=== PATIENT | female | born 2000 | race Caucasian/White ===

== ENCOUNTER 2024-09-08 14:05 | Emergency (ER) | payer SELFPAY ==
--- OUTSIDE RECORDS SUMMARY | 2024-09-08 14:07 | XMS REPORT | Continuity of Care Document ---
Author Name Unknown Address [address] [facility] [place]. [address] th[address] Address [address] [facility] [place]. [address] [place] [address] Care Team Providers Care Director Of Accounts Payable Name Role Phone [email or web address] Attending Clinician Unavailab le [email or web address] Admitting Clinician Unavailab le Payers Payer Name Policy Type Policy Number Effective Date Expirati on Date Source [facility] (MEDICAID HMO) [id number] 2016 00:00:00 Encounters Start Date/Time End Date/Time Encounter Type Admission Type Attending Clinicians Care Facility Care Department Encounter ID Source 2023-03-29 00:00:00 2023-03-29 00:00:00 Outpatient GC_PPMD_MAT THEWS_H PRIV PRIV [id number] [facility] 2023-03-29 00:00:00 2023-03-29 00:00:00 Outpatient [email or web address] THEWS_H PRIV PRIV [id number] [facility] 2023-03-23 00:00:00 2023-03-23 00:00:00 Outpatient [email or web address]_MAT THEWS_H PRIV PRIV [id number] [facility]
[2024-09-08] MEDS ORDERED: NA CHLORIDE 0.9% 1,000 ML ONE ×2 (14:50→15:45)
[2024-09-08 15:10] LABS: Specific Gravity > 1.030 (1.005-1.030); Urine Bilirubin NEGATIVE (Negative); Urine Blood Negative (Negative); Urine Clarity Clear (Clear); Urine Color Colorless (Yellow); Urine Glucose 4+ (Over) (Negative); Urine Ketones NEGATIVE (Negative); Urine Microscopic Reflex YN NO UMIC; Urine Nitrite NEGATIVE (Negative); Urine Protein NEGATIVE (Negative); Urine Urobilinogen Normal (Normal)
[2024-09-08 15:11] LABS: Absolute Basophils 0.1 K/uL (0-0.5); Absolute Eosinophils 0.1 K/uL (0-0.5); Absolute Lymphocytes (CBC) 1.8 K/uL (0.7-4.9); Absolute Monocytes 0.5 K/uL (0.1-1.3); Absolute Neutrophil 3.7 K/uL (1.8-8.0); Basophils % 0.8 % (0-1.3); Eosinophils % 2.3 % (0-4.4); Hematocrit 43.2 % (36.0-45.0); Hemoglobin 15.1 g/dL (12.0-15.0); Lymphocytes % 29.4 % (15.3-44.8); MCH 30.6 pg (27.0-35.0); MCHC 34.9 g/dL (32.0-36.0); MCV 87.8 fL (80-100); MPV 8.8 fL (7.6-11.3); Monocytes % 8.4 % (3.3-12.3); Neutrophils % 59.1 % (41.7-73.7); Platelets 336 thou/uL (152-406); RBC Red Blood Cell Count 4.92 M/uL (3.86-4.86); Red Cell Distribution Width 12.7 % (12.1-15.2)
[2024-09-08 15:23] LABS: SARS-CoV-2 Antigen CONTROL BLUE LINE VIS/BG OK; SARS-CoV-2 Antigen Rapid Res Negative (Negative)
[2024-09-08 15:29] LABS: ALT/SGPT 28 U/L (13-56); Albumin 3.4 g/dL (3.4-5.0); Albumin/Globulin Ratio 0.8 (1.1-1.8); Alkaline Phosphatase 80 U/L (45-117); Anion Gap 9.4 mEq/L (5.0-15.0); BUN Blood Urea Nitrogen 10 mg/dL (7-18); Bicarbonate 25 mEq/L (21-32); Bilirubin Total 0.7 mg/dL (0.2-1.0); Globulin 4.1 g/dL (2.3-3.5); Glomerular Filtration Rate 110 ml/min (=/>90); Glucose Level 385 mg/dL (74-106); Potassium 4.4 mEq/L (3.5-5.1); Protein, Total 7.5 g/dL (6.4-8.2); Sodium Level 134 mEq/L (136-145)
[2024-09-08 15:30] LABS: AST/SGOT < 10 U/L (15-37)
--- NOTE | 2024-09-08 15:48 | RAD REPORT ---
Procedure: Chest Single View HISTORY: Cough COMPARISON: none FINDINGS: The lungs appear clear of acute infiltrate. No significant pleural effusion noted. The heart is normal size. IMPRESSION: No acute abnormality is displayed.
[2024-09-08] MEDS ORDERED: INSULIN REGULAR (HUMAN) 100 UNIT/ML ONE (15:58)
--- NOTE | 2024-09-08 17:24 | ER ---
Nurse's Notes [facility] Name: Lucretia Juarez Age: 24 yrs Sex: Female : 2000 Arrival Date: 09/08/2024 Time: 14:05 Bed 4 Private MD: Diagnosis: Hyperglycemia, unspecified Presentation: 09/08 14:18 Chief complaint: Patient states: she checked her sugar because she wasn't feeling well ap3 and it was over 400. patient states her fasting BGL is normally around 250, but she wasn't feeling well and wanted to check her sugar. patient complains of cough for "a few days" and nausea that started this morning. Coronavirus screen: At this time, the client does not indicate any symptoms associated with coronavirus-19. Ebola Screen: No symptoms or risks identified at this time. Initial Sepsis Screen: Does the patient meet any 2 criteria? HR > 90 bpm. Does the patient have a suspected source of infection? No. Patient's initial sepsis screen is negative. Risk Assessment: Do you want to hurt yourself or someone else? Patient reports no desire to harm self or others. Onset of symptoms was September 07, 2024. 14:18 Method Of Arrival: Ambulatory ap3 14:18 Acuity: TEDDY 2 ap3 Triage Assessment: 14:21 General: Appears in no apparent distress. Behavior is calm, cooperative, appropriate ap3 for age. Pain: Denies pain. Neuro: Level of Consciousness is awake, alert, obeys commands, Oriented to person, place, time, situation. Cardiovascular: Patient's skin is warm and dry. Respiratory: Reports cough that is Airway is patent Respiratory effort is even, unlabored, Respiratory pattern is regular, symmetrical. GI: Reports nausea, since this morning. 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 - Infectious Disease History:: Denies. - Social history:: Smoking status: Patient reports the use of cigarette tobacco products, Reported history of juuling and/or vaping. Screenin:22 [facility] ED Fall Risk Assessment (Adult) History of falling in the last 3 months, ap3 including since admission No falls in past 3 months (0 pts) Confusion or Disorientation No (0 pts) Intoxicated or Sedated No (0 pts) Impaired Gait No (0 pts) Mobility Assist Device Used No (0 pt) Altered Elimination No (0 pt) Score/Fall Risk Level 0 - 2 = Low Risk Oriented to surroundings, Maintained a safe environment, Educated pt \\T\\ family on fall prevention, incl call for assistance when getting out of bed, Assessed \\T\\ reinforced patient's understanding of fall precautions, Hourly rounding (assess needs \\T\\ fall precautionary measures) done, Used ambulatory aids as needed (educated on \\T\\ assisted with), Used gait belt as appropriate. Abuse screen: Denies threats or abuse. Nutritional screening: No deficits noted. Tuberculosis screening: No symptoms or risk factors identified. Assessment: 14:55 Reassessment: Patient appears in no apparent distress at this time. Patient and/or db family updated on plan of care and expected duration. Pain level reassessed. Patient is alert, oriented x 3, equal unlabored respirations, skin warm/dry/pink. General: Appears in no apparent distress. comfortable, Behavior is calm, cooperative. Neuro: Level of Consciousness is awake, alert, obeys commands, Oriented to person, place, time, situation. Respiratory: Airway is patent Respiratory effort is even, unlabored, Respiratory pattern is regular, symmetrical. 16:30 Reassessment: Patient appears in no apparent distress at this time. Patient and/or db family updated on plan of care and expected duration. Pain level reassessed. Patient is alert, oriented x 3, equal unlabored respirations, skin warm/dry/pink. 17:38 Reassessment: Patient appears in no apparent distress at this time. Patient and/or db family updated on plan of care and expected duration. Pain level reassessed. Patient is alert, oriented x 3, equal unlabored respirations, skin warm/dry/pink. General: Appears in no apparent distress. comfortable, Behavior is calm, cooperative. Vital Signs: 14:18 Pulse 94; Resp 18; Temp 97.3(TE); Pulse Ox 99% ; Weight 79.38 kg; Height 5 ft. 2 in. ; ap3 14:18 BP 150 / 112; ap3 16:57 BP 134 / 89; Pulse 93; Resp 18; Pulse Ox 100% ; ko1 17:15 BP 130 / 90; Pulse 78; Resp 16; Pulse Ox 99% on R/A; db 14:18 Body Mass Index 32.01 (79.38 kg, 157.48 cm) ap3 ED Course: 14:07 Patient arrived in ED. mr 14:07 Payton Crenshaw, NO[facility]I [facility]. kb 14:07 Lance Peralta MD is Attending Physician. kb 14:20 Triage completed. ap3 14:23 Arm band placed on right wrist. ap3 14:55 Patient has correct armband on for positive identification. Placed in gown. Bed in low db position. Call light in reach. Side rails up X 1. Client placed on continuous cardiac and pulse oximetry monitoring. NIBP monitoring applied. school bus monitor on. Pulse ox on. NIBP on. Pillow given. 14:55 Initial lab(s) drawn, by me, sent to lab. EKG done, reviewed by Payton FRANKLIN. db Inserted saline lock: 20 gauge in right antecubital area, using aseptic technique. Blood collected. Flushed with 10 mL NS. 15:16 Dania Overton, RN is Primary Nurse. db 15:36 Chest Single View XRAY In Process Unspecified. EDMS 16:57 Provided Education on: labs. ko1 16:57 No provider procedures requiring assistance completed. ko1 17:38 IV discontinued, intact, bleeding controlled, No redness/swelling at site. db Administered Medications: 14:55 Drug: NS 0.9% IV 1000 ml IV at 1000 ml once; to be given as a bolus over 60 minutes db Route: IV; Rate: 1000 ml; Site: right antecubital; 16:02 Follow up: Response: No adverse reaction; IV Status: Completed infusion; IV Intake: db 1000ml 16:02 Drug: Insulin Regular Human IVP 5 units IVP once {Co-Signature: ashlyn (Natalie Lanier RN).} Route: IVP; Site: right antecubital; 17:38 Follow up: Response: No adverse reaction db Medication: 14:55 VIS not applicable for this client. db Point of Care Testing: Blood Glucose: 17:17 Blood Glucose: 171 mg/dL; db Ranges: Intake: 16:02 IV: 1000ml; Total: 1000ml. db Outcome: 17:24 Discharge ordered by . alexandria 17:38 Discharged to home ambulatory, db 17:38 Condition: stable 17:38 Discharge instructions given to patient, Instructed on discharge instructions, follow up and referral plans. 17:39 Patient left the ED. db Signatures: Dispatcher [employer] EDWV Payton Crenshaw, LAINE-C STRADDLE BUGGY OPERATOR-Edwin MathewAbbie, [facility] Reg mr Melinda Aguirre, RN RN javy3 Natalie Lanier, RN RN ko1 Dania Overton RN RN db Natalie Lanier RN ko1 Corrections: (The following items were deleted from the chart) 14:22 14:18 Chief complaint: Patient states: she checked her sugar because she wasn't feeling ap3 well and it was over 400. patient states her fasting BGL is normally around 250, but she wasn't feeling well and wanted to check her sugar. ap3
--- NOTE | 2024-09-08 17:24 | EDPHYS ---
Physician Documentation [facility] Name: Lucretia Juarez Age: 24 yrs Sex: Female : 2000 Arrival Date: 09/08/2024 Time: 14:05 Bed 4 Private MD: ED Physician Lance Peralta HPI: 09/08 14:51 This 24 yrs old Female presents to ER via Ambulatory with complaints of High Blood kb Sugar. 14:51 Pt is a 24 year old female who presents for high blood sugar. States it normally runs kb around 250, but she checked it today and it was 400. Reports nausea and malaise over the last few days. Denies vomiting, fever. States she has had a slight cough. 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 - Infectious Disease History:: Denies. - Social history:: Smoking status: Patient reports the use of cigarette tobacco products, Reported history of juuling and/or vaping. ROS: 14:51 Constitutional: As per HPI kb Exam: 14:51 Constitutional: This is a well developed, well nourished patient who is awake, alert, kb and in no acute distress. Head/Face: Normocephalic, atraumatic. ENT: Moist Mucous membranes Cardiovascular: Regular rate Respiratory: Respirations even and unlabored. No increased work of breathing. Talking in full sentences Abdomen/GI: Soft, non-tender. No distention Skin: Warm, dry with normal turgor. Normal color. MS/ Extremity: Pulses equal, no cyanosis. Neurovascular intact. Full, normal range of motion. Neuro: Awake and alert, GCS 15, oriented to person, place, time, and situation. 15:20 ECG was reviewed by the Attending Physician. kb Vital Signs: 14:18 Pulse 94; Resp 18; Temp 97.3(TE); Pulse Ox 99% ; Weight 79.38 kg; Height 5 ft. 2 in. ; ap3 14:18 BP 150 / 112; ap3 16:57 BP 134 / 89; Pulse 93; Resp 18; Pulse Ox 100% ; ko1 17:15 BP 130 / 90; Pulse 78; Resp 16; Pulse Ox 99% on R/A; db 14:18 Body Mass Index 32.01 (79.38 kg, 157.48 cm) ap3 MDM: 14:07 Medical Screening Exam initiated kb 17:23 Data reviewed: vital signs, nurses notes. kb 17:24 Differential diagnosis: DKA, hyperglycemia. Counseling: I had a detailed discussion kb with the patient and/or guardian regarding the historical points, exam findings, and any diagnostic results supporting the discharge/admit diagnosis, lab results, radiology results, the need for outpatient follow up, a family practitioner, to return to the emergency department if symptoms worsen or persist or if there are any questions or concerns that arise at home. 17:24 Care significantly affected by the following Social Determinants of Health: Poor access kb to healthcare and/or lack of insurance. 09/08 14:21 Order name: CBC with Diff; Complete Time: 15:29 kb 09/08 14:21 Order name: CMP; Complete Time: 15:37 kb 09/08 14:21 Order name: Test, Urine; Complete Time: 15:17 kb 09/08 14:21 Order name: Urinalysis w/ reflexes; Complete Time: 15:17 kb 09/08 14:21 Order name: Flu; Complete Time: 15:29 kb 09/08 14:21 Order name: SARS-COV-2 Antigen Rapid; Complete Time: 15:29 kb 09/08 14:30 Order name: Glucose, Ancillary Testing; Complete Time: 14:30 EDMS 09/08 17:28 Order name: Glucose, Ancillary Testing; Complete Time: 17:30 EDMS 09/08 14:21 Order name: Chest Single View XRAY; Complete Time: 15:50 kb 09/08 14:21 Order name: IV Start; Complete Time: 14:55 kb 09/08 14:21 Order name: EKG - Nurse/Tech; Complete Time: 15:17 kb 09/08 16:45 Order name: Blood Glucose Level; Complete Time: 17:17 kb EC:20 Rate is 82 beats/min. Rhythm is regular. QRS [place] is Normal. MI interval is normal at kb 122 msec. QRS interval is normal at 92 msec. QT interval is normal at 427 msec. Administered Medications: 14:55 Drug: NS 0.9% IV 1000 ml IV at 1000 ml once; to be given as a bolus over 60 minutes db Route: IV; Rate: 1000 ml; Site: right antecubital; 16:02 Follow up: Response: No adverse reaction; IV Status: Completed infusion; IV Intake: db 1000ml 16:02 Drug: Insulin Regular Human IVP 5 units IVP once {Co-Signature: ko1 (Natalie Lanier RN).} Route: IVP; Site: right antecubital; 17:38 Follow up: Response: No adverse reaction db Point of Care Testing: Blood Glucose: 17:17 Blood Glucose: 171 mg/dL; db Ranges: Critical Glucose Levels:Adult <50 mg/dl or >400 mg/dl <40 mg/dl or >180 mg/dl Disposition: 09/09 07:02 Co-signature as Attending Physician, Lance Peralta MD I reviewed the patient's care rt provided by the Advanced Practice Provider and agree with the diagnosis and treatment plan. Disposition Summary: 09/08/24 17:24 Discharge Ordered Notes: Location: Home kb Condition: Stable kb Diagnosis - Hyperglycemia, unspecified kb Followup: kb - With: Emergency Department - When: As needed - Reason: Worsening of condition Followup: kb - With: Private Physician - When: 2 - 3 days - Reason: Recheck today's complaints, Continuance of care, Re-evaluation by your physician Discharge Instructions: - Discharge Summary Sheet kb - Hyperglycemia, [id number] kb Forms: - Medication Reconciliation Form kb - Antibiotic Education kb - Prescription Opioid Use kb - Patient Portal Instructions kb - Leadership Thank You Letter kb - Work release form ap3 Signatures: Dispatcher [employer] [facility] Payton Crenshaw FNP-C LAINE-Melinda Wagner RN RN ap3 Dania Overton RN RN db [place], Ryan, MD MD rt Natalie Lanier RN ko1 Corrections: (The following items were deleted from the chart) 09/08 14:21 14:21 CBC+H.LAB.BRZ ordered. EDAK EDMS 14:21 14:21 COMPREHENSIVE METABOLIC PANEL+C.LAB.BRZ ordered. EDAK EDMS 14:21 14:21 Test, Urine+UC.LAB.BRZ ordered. EDAK EDMS 14: 14:21 Urinalysis+U.LAB.BRZ ordered. EDMS EDMS 14: 14:21 Chest Single View+RAD.RAD.BRZ ordered. EDMS EDMS 14: 14:21 Influenza Screen (A \T\ B)+BA.LAB.BRZ ordered. EDMS EDMS 14: 14:21 SARS-COV-2 Antigen Rapid+I.LAB.BRZ ordered. EDMS EDMS
[2024-09-08 20:18] VITALS: TEMP 97.3
[2024-09-08 20:24] VITALS: BP 134/89; O2SAT 100
--- NOTE | 2024-09-13 12:46 | EKG ---
Test Date: 2024-09-08 Test Time: 15:02:04 Paunch Trimmer: JUANJOSE MEASUREMENT RESULTS: Intervals: Rate: 82 MD: 122 QRSD: 92 QT: 366 QTc: 427 Dania: P: 26 MD: 122 QRS: 49 T: 55 INTERPRETIVE STATEMENTS: Normal sinus rhythm with sinus arrhythmia Normal ECG No previous ECG available for comparison Electronically Signed On 09-13-24 12:37:26 PATENT LEGAL ASSISTANT by Dg Christensen
== END 2024-09-08 17:39 | disposition home or self-care (01) ==
LOC: ER 14:05
DX: E11.65 Type 2 diabetes mellitus with hyperglycemia (principal)
CPT/HCPCS: 36415; 71045; 80053; 81003; 81025; 82947; 85025; 87804; 87811; 93005; 96361; 96374; 99285; J7030

== ENCOUNTER 2024-12-23 14:33 | Emergency (ER) | payer SELFPAY ==
[2024-12-23] MEDS ORDERED: NA CHLORIDE 0.9% 1,000 ML ONE (15:30)
[2024-12-23] MEDS ORDERED: KETOROLAC 30 MG/ML INJ ONE (15:30)
[2024-12-23] MEDS ORDERED: ONDANSETRON 4 MG/2 ML VIAL ONE (15:30)
[2024-12-23] MEDS ORDERED: FAMOTIDINE 20 MG/2 ML VIAL IV ONE (15:30)
[2024-12-23 15:48] LABS: Specific Gravity 1.021 (1.005-1.030); Urine Bilirubin NEGATIVE (Negative); Urine Blood Negative (Negative); Urine Clarity Clear (Clear); Urine Color Light-Yellow (Yellow); Urine Glucose 4+ (Over) (Negative); Urine Ketones NEGATIVE (Negative); Urine Microscopic Reflex YN NO UMIC; Urine Nitrite NEGATIVE (Negative); Urine Protein NEGATIVE (Negative); Urine Urobilinogen Normal (Normal); Urine pH 5.5 (5.0-7.0)
[2024-12-23 15:52] LABS: Absolute Basophils 0.1 K/uL (0-0.5); Absolute Eosinophils 0.2 K/uL (0-0.5); Absolute Lymphocytes (CBC) 2.6 K/uL (0.7-4.9); Absolute Monocytes 0.5 K/uL (0.1-1.3); Absolute Neutrophil 4.7 K/uL (1.8-8.0); Basophils % 0.7 % (0-1.3); Eosinophils % 2.5 % (0-4.4); Hematocrit 45.4 % (36.0-45.0); Hemoglobin 15.6 g/dL (12.0-15.0); Lymphocytes % 31.8 % (15.3-44.8); MCH 29.6 pg (27.0-35.0); MCHC 34.3 g/dL (32.0-36.0); MCV 86.2 fL (80-100); MPV 8.9 fL (7.6-11.3); Monocytes % 6.5 % (3.3-12.3); Neutrophils % 58.5 % (41.7-73.7); Nucleated RBC Absolute Count 0.1 (0-0); Nucleated Red Blood Cells % 0.7 % (0-0); Platelets 276 thou/uL (152-406); RBC Red Blood Cell Count 5.26 M/uL (3.86-4.86); Red Cell Distribution Width 12.8 % (12.1-15.2)
--- NOTE | 2024-12-23 16:02 | RAD REPORT ---
EXAM: Abdominal exam Limited ultrasound CLINICAL HISTORY: Abdominal pain COMPARISON: None FINDINGS: A gallstone is not seen. Gallbladder wall not thickened. Biliary tree normal caliber IMPRESSION: No significant abnormalities displayed
[2024-12-23 16:16] LABS: ALT/SGPT 25 U/L (13-56); Albumin 3.5 g/dL (3.4-5.0); Albumin/Globulin Ratio 0.9 (1.1-1.8); Alkaline Phosphatase 75 U/L (45-117); Anion Gap 9.1 mEq/L (5.0-15.0); BUN Blood Urea Nitrogen 11 mg/dL (7-18); Bicarbonate 26 mEq/L (21-32); Bilirubin Total 0.6 mg/dL (0.2-1.0); Globulin 4.1 g/dL (2.3-3.5); Glomerular Filtration Rate 123 ml/min (=/>90); Glucose Level 235 mg/dL (74-106); Lipase 40 U/L (13-75); Protein, Total 7.6 g/dL (6.4-8.2); Sodium Level 132 mEq/L (136-145)
[2024-12-23 16:18] LABS: AST/SGOT < 10 U/L (15-37); Potassium 4.1 mEq/L (3.5-5.1)
--- NOTE | 2024-12-23 16:31 | ER ---
Nurse's Notes [facility] Name: Lucretia Juarez Age: 24 yrs Sex: Female : 2000 Arrival Date: 12/23/2024 Time: 14:33 Bed 11 Private MD: Diagnosis: Upper abdominal pain, unspecified;Hyperglycemia, unspecified Presentation: 12/23 14:41 Chief complaint: Patient states: Upper abdominal pain, nausea and heart burn, also ph reports that she does not have her insulin "So my sugar is probably through the roof.". Coronavirus screen: Vaccine status: Patient reports being unvaccinated. Ebola Screen: No symptoms or risks identified at this time. Initial Sepsis Screen: Does the patient meet any 2 criteria? No. Patient's initial sepsis screen is negative. Does the patient have a suspected source of infection? No. Patient's initial sepsis screen is negative. Risk Assessment: Do you want to hurt yourself or someone else? Patient reports no desire to harm self or others. Onset of symptoms was December 23, 2024. 14:41 Method Of Arrival: Ambulatory ph 14:41 Acuity: TEDDY 3 ph Historical: - Allergies: 14:43 steroids; ph - PMHx: 14:43 Chronic Pancreatitis; diabetes mellitus; ph - PSHx: 14:43 Adenoid excision; Tonsillectomy; ph - Immunization history:: Adult Immunizations unknown. - Infectious Disease History:: Denies. Screenin:23 [facility] ED Fall Risk Assessment (Adult) History of falling in the last 3 months, jb4 including since admission No falls in past 3 months (0 pts) Confusion or Disorientation No (0 pts) Intoxicated or Sedated No (0 pts) Impaired Gait No (0 pts) Mobility Assist Device Used No (0 pt) Altered Elimination No (0 pt) Score/Fall Risk Level 0 - 2 = Low Risk Oriented to surroundings, Maintained a safe environment. Abuse screen: Denies threats or abuse. Nutritional screening: No deficits noted. Tuberculosis screening: No symptoms or risk factors identified. Assessment: 15:23 General: Appears in no apparent distress. comfortable, Behavior is calm, cooperative, jb4 appropriate for age. Pain: Complains of pain in epigastric area and umbilical area Pain radiates to back Pain currently is 7 out of 10 on a pain scale. Neuro: Level of Consciousness is awake, alert, obeys commands, Oriented to person, place, time, situation. Cardiovascular: Patient's skin is warm and dry. Respiratory: Airway is patent Respiratory effort is even, unlabored, Respiratory pattern is regular, symmetrical. GI: Abdomen is round non-distended, Reports upper abdominal pain. Derm: Skin is intact, Skin is pink, warm \\T\\ dry. Musculoskeletal: Circulation, motion, and sensation intact. Range of motion: intact in all extremities. 16:27 Reassessment: Patient appears in no apparent distress at this time. Patient and/or jb4 family updated on plan of care and expected duration. Pain level reassessed. Patient is alert, oriented x 3, equal unlabored respirations, skin warm/dry/pink. Vital Signs: 14:41 BP 130 / 104; Pulse 80; Resp 18; Temp 97.9; Pulse Ox 97% on R/A; ph 14:43 Weight 81.65 kg; Height 5 ft. 2 in. ; ph 14:43 Body Mass Index 32.92 (81.65 kg, 157.48 cm) ph ED Course: 14:36 Patient arrived in ED. mr 14:38 Payton Crenshaw, NOEMI [facility]. kb 14:38 Ed Coon MD is Attending Physician. kb 14:42 Triage completed. ph 14:43 Arm band placed on Patient placed in waiting room, Patient notified of wait time. ph 15:02 Abdomen Limited US In Process Unspecified. EDMS 15:18 No provider procedures requiring assistance completed. Inserted saline lock: 18 gauge jb4 in right antecubital area, using aseptic technique. Blood collected. 15:22 CBC with Diff Sent. jb4 15:22 CMP Sent. jb4 15:22 Lipase Sent. jb4 15:22 Test, Urine Sent. jb4 15:23 Patient has correct armband on for positive identification. Bed in low position. Call jb4 light in reach. Side rails up X 1. Provided Education on: plan of care. 15:23 UA Rfx Gautam Cult if indicated Sent. jb4 15:29 Yash Francois, RN is Primary Nurse. jb4 16:48 IV discontinued, intact, bleeding controlled, No redness/swelling at site. Pressure jb4 dressing applied. Administered Medications: 15:42 Drug: Famotidine IVP 20 mg IVP once; dilute with 10 mL 0.9% NaCl; give over 2 minutes jb4 Route: IVP; Site: right antecubital; 16:49 Follow up: Response: No adverse reaction; Marked relief of symptoms jb4 15:42 Drug: TORadol - Ketorolac IVP 15 mg IVP once Route: IVP; Site: right antecubital; jb4 16:50 Follow up: Response: No adverse reaction; Marked relief of symptoms jb4 15:42 Drug: Ondansetron IVP 4 mg IVP once; over 2 minutes Route: IVP; Site: right antecubital;jb4 16:50 Follow up: Response: No adverse reaction; Marked relief of symptoms jb4 15:42 Drug: NS 0.9% IV 1000 ml IV at 1 bolus Per protocol; to be given as a bolus over 60 jb4 minutes Route: IV; Rate: 1 bolus; Site: right antecubital; 16:49 Follow up: Response: No adverse reaction; Marked relief of symptoms; IV Status: Order jb4 to discontinue infusion; Order to discontinue infusionpt discharged; IV Intake: 700ml Medication: 15:23 VIS not applicable for this client. jb4 Intake: 16:49 IV: 700ml; Total: 700ml. jb4 Outcome: 16:31 Discharge ordered by . alexandria 16:49 Discharged to home ambulatory, jb4 16:49 Condition: stable 16:49 Discharge instructions given to patient, Instructed on discharge instructions, follow up and referral plans. medication usage, Demonstrated understanding of instructions, follow-up care, medications, Prescriptions given X 1, 16:50 Patient left the ED. jb4 Signatures: Dispatcher [employer] EDMS Payton Crenshaw, LAINE-C GLUER MACHINE OPERATOR-Abbie Escudero, Seferino Gentile mr Sabine Castellanos, RN RN Yash Lewis, EVER RN jb4
--- NOTE | 2024-12-23 16:31 | EDPHYS ---
Physician Documentation [facility] Name: Lucretia Juarez Age: 24 yrs Sex: Female : 2000 Arrival Date: 12/23/2024 Time: 14:33 Bed 11 Private MD: ED Physician Ed Coon HPI: 12/23 15:52 This 24 yrs old Female presents to ER via Ambulatory with complaints of Abdominal Pain, kb blood sugar problem. 15:52 Patient is a 24-year-old female who presents for nausea and heartburn that has been kb going on for about a week with upper abdominal pain that started this morning. States she is type II diabetic but ran out of insulin a few months ago and has not been checking her sugars. Denies diarrhea or fever.. Historical: - Allergies: 14:43 steroids; ph - PMHx: 14:43 Chronic Pancreatitis; diabetes mellitus; ph - PSHx: 14:43 Adenoid excision; Tonsillectomy; ph - Immunization history:: Adult Immunizations unknown. - Infectious Disease History:: Denies. ROS: 15:52 Constitutional: As per HPI kb Exam: 15:52 Constitutional: This is a well developed, well nourished patient who is awake, alert, kb and in no acute distress. Head/Face: Normocephalic, atraumatic. ENT: Moist Mucous membranes Cardiovascular: Regular rate Respiratory: Respirations even and unlabored. No increased work of breathing. Talking in full sentences Skin: Warm, dry with normal turgor. Normal color. MS/ Extremity: Pulses equal, no cyanosis. Neurovascular intact. Full, normal range of motion. Neuro: Awake and alert, GCS 15, oriented to person, place, time, and situation. 15:52 Abdomen/GI: Inspection: abdomen appears normal, Bowel sounds: normal, Palpation: soft, in all quadrants, mild abdominal tenderness, in the epigastric area and right upper quadrant, Vital Signs: 14:41 BP 130 / 104; Pulse 80; Resp 18; Temp 97.9; Pulse Ox 97% on R/A; ph 14:43 Weight 81.65 kg; Height 5 ft. 2 in. ; ph 14:43 Body Mass Index 32.92 (81.65 kg, 157.48 cm) ph MDM: 14:38 Medical Screening Exam initiated kb 15:53 Differential diagnosis: cholecystitis, Cholelithiasis, gastritis, gastroesophageal kb reflux disease, non-specific abd pain, pancreatitis. Data reviewed: vital signs, nurses notes. 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 12/23 14:45 Order name: CBC with Diff; Complete Time: 16:10 kb 12/23 14:45 Order name: CMP; Complete Time: 16:25 kb 12/23 14:45 Order name: Lipase; Complete Time: 16:25 kb 12/23 14:45 Order name: Test, Urine; Complete Time: 15:51 kb 12/23 14:45 Order name: UA Rfx Gautam Cult if indicated; Complete Time: 15:51 kb 12/23 14:45 Order name: Abdomen Limited US; Complete Time: 16:03 kb 12/23 14:45 Order name: IV Saline Lock; Complete Time: 15:23 kb 12/23 14:45 Order name: Labs collected and sent; Complete Time: 15:23 kb Administered Medications: 15:42 Drug: Famotidine IVP 20 mg IVP once; dilute with 10 mL 0.9% NaCl; give over 2 minutes jb4 Route: IVP; Site: right antecubital; 16:49 Follow up: Response: No adverse reaction; Marked relief of symptoms jb4 15:42 Drug: TORadol - Ketorolac IVP 15 mg IVP once Route: IVP; Site: right antecubital; jb4 16:50 Follow up: Response: No adverse reaction; Marked relief of symptoms jb4 15:42 Drug: Ondansetron IVP 4 mg IVP once; over 2 minutes Route: IVP; Site: right antecubital;jb4 16:50 Follow up: Response: No adverse reaction; Marked relief of symptoms jb4 15:42 Drug: NS 0.9% IV 1000 ml IV at 1 bolus Per protocol; to be given as a bolus over 60 jb4 minutes Route: IV; Rate: 1 bolus; Site: right antecubital; 16:49 Follow up: Response: No adverse reaction; Marked relief of symptoms; IV Status: Order jb4 to discontinue infusion; Order to discontinue infusionpt discharged; IV Intake: 700ml Disposition: 18:16 Co-signature as Attending Physician, Ed Coon MD I reviewed the patient's care rn provided by the Advanced Practice Provider and agree with the diagnosis and treatment plan. Disposition Summary: 12/23/24 16:31 Discharge Ordered Notes: Location: Home kb Condition: Stable kb Diagnosis - Upper abdominal pain, unspecified kb - Hyperglycemia, unspecified kb Followup: kb - With: Emergency Department - When: As needed - Reason: Worsening of condition Followup: kb - With: Private Physician - When: 2 - 3 days - Reason: Recheck today's complaints, Continuance of care, Re-evaluation by your physician Discharge Instructions: - Discharge Summary Sheet kb - Abdominal Pain, Adult, [id number] kb - Hyperglycemia, [id number] kb Forms: - Medication Reconciliation Form kb - Antibiotic Education kb - Prescription Opioid Use kb - Patient Portal Instructions kb - Leadership Thank You Letter kb Prescriptions: - Protonix 40 mg Oral Tablet - take 1 tablet ORAL route once daily; 30 tablet; Refills: 0, Product Selection kb Permitted Signatures: Dispatcher [employer] Payton Burrell, [employer]ACH-C [employer]ACH-Ed Skinner MD MD rn Hall, Patricia, RN RN ph Bryson, James, RN RN [email or web address]
[2024-12-23 17:04] VITALS: BP 130/104; TEMP 97.9; O2SAT 97
== END 2024-12-23 16:50 | disposition home or self-care (01) ==
LOC: ER 14:33
DX: E11.65 Type 2 diabetes mellitus with hyperglycemia (principal)
CPT/HCPCS: 36415; 76705; 80053; 81003; 81025; 83690; 85025; 96361; 96374; 96375; 99284; J2405; J7030